=== PATIENT | female | born 1955 | race Caucasian/White ===

== ENCOUNTER 2020-07-26 10:30 | Outpatient (CLI) | payer OTHER ==
[2020-07-26 10:57] LABS: Bilirubin Small (Negative); Blood, Urine Negative (Negative); Clarity Clear (Clear); Glucose, Urine (Dipstick) Negative (Negative); Ketone, Urine Trace mg/dL (Negative); Leukocyte Trace (Negative); Nitrite Negative (Negative); Protein, Urine (Dipstick) 30 mg/dL (Neg-Trace); Urobilinogen 0.2 mg/dL (Less than 2)
[2020-07-26 11:11] LABS: Bacteria/HPF None Seen HPF (None Seen); Mucous/LPF Rare LPF (<2+); RBC/HPF 0-3 HPF (0-3); Squamous Epithelial 0-3 HPF (0-3); WBC/HPF 0-3 HPF (0-3)
[2020-07-26 11:13] LABS: ALT (SGPT) 13 U/L (8-55); AST (SGOT) 15 U/L (5-34); Albumin 4.1 g/dL (3.4-4.8); Alkaline Phosphatase 89 U/L (40-110); Anion Gap 15 mmol/L (10-20); BUN (Urea Nitrogen) 11 mg/dL (9.8-20.1); Bilirubin, Total 0.8 mg/dL (0.2-1.2); Calc. Creatinine Clearance 0 mL/min (70-130); Calcium 9.3 mg/dL (7.8-10.44); Carbon Dioxide 30 mmol/L (23-31); Cardiac Risk 3.6 (Less than 4.5); Chloride 99 mmol/L (98-107); Cholesterol 226 mg/dl (< 200 Desired); Estimated GFR-MDRD 75; Globulin 3.5 g/dL (2.4-3.5); Glucose 96 mg/dL (80-115); HDL Cholesterol 63 mg/dL (>60 Neg Risk); LDL Cholesterol, Calculated 137 mg/dL; Potassium 3.3 mmol/L (3.5-5.1); Protein, Total 7.6 g/dL (6.0-8.3); Sodium 141 mmol/L (136-145); Triglycerides 132 mg/dL (Less than 150)
[2020-07-26 11:34] LABS: #Basophils 0.1 thou/uL (0.0-0.2); #Eosinphils 0.5 thou/uL (0.0-0.7); #Lymphocytes 1.4 thou/uL (1.20-3.40); #Monocytes 0.5 thou/uL (0.11-0.59); #Neutrophils 2.6 thou/uL (1.40-6.50); %Basophils 2.3 % (0.0-1.0); %Eosinophils 9.9 % (0.0-10.0); %Lymphocytes 27.6 % (21.0-51.0); %Monocytes 10.2 % (0.0-10.0); Anisocytosis SLIGHT = 6-15 cells (100X) (0-5/hpf); Elliptocytes SLIGHT = 2-5 cells (100X) (0-1/hpf); Hemoglobin 11.9 g/dL (12.0-16.0); Hypochromia SLIGHT = 6-15 cells (100X) (0-5/hpf); MDiff Complete? YES; Mean Corpuscular HGB CONC 31.2 g/dL (32.0-36.0); Mean Corpuscular Hemoglobin 24.6 pg (27.0-31.0); Mean Corpuscular Volume 78.7 fL (78.0-98.0); Mean Platelet Volume 5.7 fL (7.4-10.4); Platelet Count 336 thou/uL (130-400); Platelet Morphology Comment Appears Adequate; RBC Distribution Width 16.2 % (11.5-14.5); Red Blood Cell (RBC) Count 4.84 mill/uL (4.20-5.40); White Blood Cell (WBC) Count 5.2 thou/uL (4.8-10.8)
[2020-07-26 12:09] LABS: Thyroid Stimulating Hormone 1.1112 uIU/mL (0.35-4.94)
[2020-07-26 17:00] LABS: Iron 31 ug/dL (50-170)
[2020-07-26 17:39] LABS: Free T4 (Free Thyroxine) 0.96 ng/dL (0.70-1.48)
[2020-07-26 17:40] LABS: Vitamin D, 25 Hydroxy 19.2 ng/ml (> 30.0)
== END 2020-07-26 10:31 | disposition home or self-care (01) ==
LOC: BURLAB 10:30
PROVIDERS: ATTEND Internal Medicine
DX: E78.5 Hyperlipidemia, unspecified (principal); I10 Essential (primary) hypertension; D64.9 Anemia, unspecified; E55.9 Vitamin D deficiency, unspecified
CPT/HCPCS: 36415; 80053; 80061; 81001; 82306; 83540; 84439; 84443; 85025

== ENCOUNTER 2023-05-20 22:43 | Emergency (ER) | payer MEDICARE ==
[2023-05-20 23:24] LABS: #Basophils 0.2 thou/uL (0.0-0.2); #Eosinphils 0.5 thou/uL (0.0-0.7); #Lymphocytes 2.1 thou/uL (1.20-3.40); #Monocytes 0.7 thou/uL (0.11-0.59); #Neutrophils 3.7 thou/uL (1.40-6.50); %Basophils 2.5 % (0.0-1.0); %Eosinophils 7.6 % (0.0-10.0); %Monocytes 9.1 % (0.0-10.0); %Neutrophils 51.8 % (42.0-75.0); Hematocrit 31.8 % (36.0-47.0); Mean Corpuscular HGB CONC 28.3 g/dL (32.0-36.0); Mean Corpuscular Hemoglobin 18.7 pg (27.0-31.0); Mean Platelet Volume 5.6 fL (7.4-10.4); Platelet Count 452 10x3/uL (130-400); RBC Distribution Width 14.7 % (11.5-14.5); Red Blood Cell (RBC) Count 4.82 mill/uL (4.20-5.40); White Blood Cell (WBC) Count 7.1 10x3/uL (4.8-10.8)
[2023-05-20 23:27] LABS: INR-International Normal Ratio 0.9
[2023-05-20 23:28] LABS: PTT 25.1 sec (22.9-36.1)
[2023-05-20] MEDS ORDERED: Nitroglycerin 2% Ointment 1 INCH/1 GM Packet ONE (23:32)
[2023-05-20] MEDS ORDERED: Aspirin 325 MG TAB ONE (23:32)
[2023-05-20 23:37] LABS: Troponin I 0.067 ng/mL (< 0.028)
[2023-05-20 23:42] LABS: ALT (SGPT) 17 U/L (8-55); AST (SGOT) 22 U/L (5-34); Albumin 4.3 g/dL (3.4-4.8); Alkaline Phosphatase 80 U/L (40-110); Anion Gap 17 mmol/L (10-20); BUN (Urea Nitrogen) 16 mg/dL (9.8-20.1); Bilirubin, Total 0.5 mg/dL (0.2-1.2); Calc. Creatinine Clearance 0 mL/min (70-130); Calcium 9.3 mg/dL (7.8-10.44); Carbon Dioxide 25 mmol/L (23-31); Chloride 100 mmol/L (98-107); Estimated GFR 75; Globulin 3.3 g/dL (2.4-3.5); Glucose 100 mg/dL (80-115); Lipase 33 U/L (8-78); Magnesium 1.9 mg/dL (1.6-2.6); Potassium 2.9 mmol/L (3.5-5.1); Protein, Total 7.6 g/dL (5.8-8.1); Sodium 139 mmol/L (136-145)
[2023-05-20] MEDS ORDERED: Ondansetron PF 4 MG/2 ML Vial ONE (23:45)
[2023-05-20] MEDS ORDERED: Morphine 4 MG/ML VIAL ONE (23:53)
[2023-05-21 00:08] LABS: MDiff Complete? YES
[2023-05-21 00:09] LABS: Anisocytosis SLIGHT = 6-15 cells (100X) (0-5/hpf); Microcytosis MODERATE=15-30 cells (100X) (0-5/hpf); Platelet Adequacy Comment Appears Increased
== END 2023-05-21 00:52 | disposition short-term general hospital (02) ==
LOC: BURERS 22:43
DX: I20.0 Unstable angina (principal)
CPT/HCPCS: 71045; 80053; 83690; 83735; 83880; 84484; 85025; 85610; 85730; 93005; 96361; 96374; 96375; J2270; J2405